=== PATIENT | female | born 1985 | race Caucasian/White ===

== ENCOUNTER 2017-04-06 09:02 | Outpatient (CLI) | payer OTHER ==
[2017-04-06 10:45] LABS: HCT - HEMATOCRIT 36.8 % (37.0-47.0); HGB - HEMOGLOBIN 12.6 g/dL (12.0-16.0); MEAN CORPUSCULAR HEMOGLOBIN 31.6 pg (27.0-31.0); MEAN CORPUSCULAR HGB CONC 34.3 g/dL (32.0-36.0); MEAN CORPUSCULAR VOLUME 92.1 fL (81.0-99.0); MEAN PLATELET VOLUME 7.3 fL (7.9-10.8); RED BLOOD COUNT 3.99 10^6/uL (4.20-5.40); RED CELL DISTRIBUTION WIDTH 13.5 % (12.0-15.0); WHITE BLOOD COUNT 10.9 x10^3/uL (4.8-10.8)
== END 2017-04-06 09:03 | disposition home or self-care (01) ==
LOC: LAB 09:02
PROVIDERS: ATTEND Nurse Practitioner Obstetrics & Gynecology
DX: Z36 Encounter for antenatal screening of mother (principal)
CPT/HCPCS: 36415; 82950; 86850; 87340

== ENCOUNTER 2017-05-22 07:42 | Outpatient (CLI) | payer OTHER | END 2017-05-22 07:43 | disposition home or self-care (01) | LOC: LAB.R 07:42 | PROVIDERS: ATTEND Nurse Practitioner Obstetrics & Gynecology | DX: Z11.3 Encounter for screening for infections with a predominantly sexual mode of transmission (principal) | CPT/HCPCS: 87081; 87491; 87591 ==

== ENCOUNTER 2017-06-29 14:27 | Inpatient (IN) | payer OTHER ==
[2017-06-29] MEDS ORDERED: SODIUM CHLORIDE FLUSH 0.9% 10 ML SYRINGE IVP PRN (14:50)
[2017-06-29] MEDS ORDERED: fentaNYL 100 MCG/2 ML VIAL IVP PRN (14:50)
[2017-06-29] MEDS ORDERED: ONDANSETRON 4 MG/2 ML VIAL IVP PRN (14:50)
--- NOTE | 2017-06-29 14:59 | HISTORY & PHYSICAL EXAMINATION ---
Admit History - Instructions Akhiok/Slash: -Left hand click circles element as positive or present. -Right hand click slashes element as negative or not present. - Visit Reason Visit Reason: Contractions (every 2 minutes x30 seconds), Other ( oligohydramnios @ 40w6d w/ NELSY 4.38cm this am) - : 1 Parity: 0 Premature: 0 Ectopic: 0 : 0 Care: positive: GRAEME-Florinda Risk/History: positive: None, Labor induction (pt desires AROM only to see if that is sufficient prior to Pitocin initiation), Other (history of PPH) Complications This : positive: None Smoking Status: Never smoker - Mother's Labs Mother's Blood Type: positive: O Mother's RH: positive: Positive GBS: positive: Group B Step Negative Rubella Status: positive: Immune - Other Maternal History Other Maternal History: hx PPH s/p rapid labor/delivery of 8#15oz infant s/p IOL for postdates/oligo Meds/Allgy - Home Medications Home Medications: Ambulatory Orders Medication Instructions Recorded Confirmed Pnv No.122/Iron/Folic Acid 1 PO DAILY 06/29/17 [ Multi Tablet] - Allergies Allergies/Adverse Reactions: Allergies Allergy/AdvReac Type Severity Reaction Status Date / Time No Known Drug Allergies Allergy Verified 06/29/17 15:01 Physical - Abdominal Exam Vital Signs: T: 98.4; HR 120bpm, BP 126/66, RR 18 : 4 Contraction Intensity: positive: Mild to moderate Uterine Resting Tone: positive: Soft - Monitoring Heart Rate Baseline: 145 Strip Review: positive: Category II (145bpm baseline, mod variability, + accel, non-repetitive occasional variable decel to maritza in 120s w/ spontaneous return to baseline <60 sec) - Presentation Presentation: positive: Vertex (EFW ~9#) - Vaginal Exam Membranes: positive: Membranes intact Dilation (in cm): 5-6 Effacement (%): 80 Station: positive: -2 Cervical Position: positive: Anterior - Speculum Exam Speculum Exam Performed: positive: No Plan for Labor - Plan For Labor : IOL secondary to oligo @ term; pt desires AROM only initially, Pitocin if no spontaneous progress, presently spontaneously sourav & favorable cervical status; GBS negative; desires unmedicated delivery; hemorrhage pack in room: Pitocin s/p delivery of anterior shoulder & buccal 400mcg misoprostol immediately s/p delivery; Pitocin if no spontaneous progress Plan for Labor: Erika is a 31 y/o @ 40w6d who presented today for her routine visit & underwent ENLSY evaluation secondary to postdates planning. She had hoped to enter spontaneous labor. Her NELSY this morning was 4.38cm w/ maximum vertical pocket of 1.68cm. I reviewed the indication for IOL & the risks/ benefits of IOL in the setting of favorable cervical status & oligohydramnios @ term. She desires AROM only initially w/ initiation of Pitocin infusion PRN no spontaneous progress. Her course was uncomplicated. Her obstetric hx is notable for hx of macrosomic delivery w/ immediate PPH. We discussed active management of the third stage of labor & we planned buccal misoprostol & IV Pitocin s/p delivery of anterior shoulder. She is hoping for minimal intervention during labor/delivery. She screened negative for GBS @ 36 weeks' gestation. She is sourav spontaneously. Dr. Eduard DO, apprised of plan of care & concurs.
[2017-06-29] MEDS ORDERED: LACTATED RINGERS 1,000 ML IV SCH ×2 (15:00→18:00)
[2017-06-29 15:22] LABS: BASOPHILS # (AUTO) 0.1 10^3/uL (0.0-0.1); BASOPHILS % (AUTO) 0.8 %; EOSINOPHILS # (AUTO) 0.1 10^3/uL (0.0-0.7); EOSINOPHILS % (AUTO) 0.4 %; HCT - HEMATOCRIT 39.7 % (37.0-47.0); HGB - HEMOGLOBIN 13.5 g/dL (12.0-16.0); LYMPHOCYTES # (AUTO) 1.5 10^3/uL (1.5-3.5); LYMPHOCYTES % (AUTO) 8.9 %; MEAN CORPUSCULAR HEMOGLOBIN 30.4 pg (27.0-31.0); MEAN CORPUSCULAR HGB CONC 33.9 g/dL (32.0-36.0); MEAN CORPUSCULAR VOLUME 89.5 fL (81.0-99.0); MEAN PLATELET VOLUME 7.5 fL (7.9-10.8); MONOCYTES # (AUTO) 0.8 10^3/uL (0.0-1.0); MONOCYTES % (AUTO) 4.7 %; NEUTROPHILS # (AUTO) 14.3 10^3/uL (1.5-6.6); NEUTROPHILS % (AUTO) 85.2 %; RED BLOOD COUNT 4.44 10^6/uL (4.20-5.40); RED CELL DISTRIBUTION WIDTH 14.6 % (12.0-15.0); UNCORRECTED WHITE BLOOD COUNT 16.8 x10^3/uL; WHITE BLOOD COUNT 16.8 x10^3/uL (4.8-10.8)
[2017-06-29 15:48] LABS: PLATELET ESTIMATE, MANUAL NORMAL (130-450,000) (NORMAL); PLATELET MORPHOLOGY NORMAL APPEARANCE (NORMAL); WBC MORPHOLOGY (MULTIPLE) NORMAL APPEARANCE (NORMAL)
[2017-06-29] MEDS ORDERED: miSOPROStol 200 MCG TABLET ONE (16:29)
[2017-06-29] MEDS ORDERED: LIDOCAINE 1% 50 ML MDV ONE (16:51)
[2017-06-29] MEDS: OXYTOCIN/LACTATED RINGERS 250 ML IV ONE ×2 (16:51→16:58)
--- NOTE | 2017-06-29 17:12 | PROVIDER PROGRESS NOTE ---
Labor Progress Note - Uterine Monitoring Uterine Monitoring Mode: positive: External toco Contraction Frequency (min/apart): 3 Contraction Intensity: positive: Moderate Uterine Resting Tone: positive: Soft - Monitoring Monitor Mode: positive: External ultrasound Heart Rate Baseline: 140 Heart Rate Variability: positive: Moderate (6-25 bmp) Accelerations: positive: Present, 15x15 Decelerations: positive: Early Strip Review: positive: Category I - Vaginal Exam Dilation (in cm): 7 Effacement (%): 100 Station: -1 Cervical Position: Anterior - Labor Progress Note Labor Progress Note/Additional Text: S: Erika reports increased intensity of uterine contractions, spontaneously, does not desire analgesia, anesthesia, would like AROM @ this time. , Rayshawn, present & supportive. O: AAOx3, NAD WA gravid female EFM: baseline 140bpm, + accel, +early decelerations, moderate variability TOCO: UCs q 3 minutes, palpably strong SVE; 7/100/-1, AROM for scant amt CAF A: 31 y/o @ 40w6d, spontaneous uterine contractions w/ advanced & progressive cervical dilation Augmentation for oligo per pt's request Hx of rapid labor w/ subsequent immediate PPH GBS negative CAF Adequate pain control w/o analgesia/anesthesia w/ desire for unmedicated delivery P: 1. Expectant
[2017-06-29] MEDS ORDERED: HYDROCORTISONE/PRAMOXINE 10 GM PR PRN (17:13)
[2017-06-29] MEDS ORDERED: OXYTOCIN/LACTATED RINGERS 250 ML IV ONE (17:13)
[2017-06-29] MEDS ORDERED: WITCH HAZEL/GLYCERIN 1 EACH MED..PAD TOP PRN (17:13)
[2017-06-29] MEDS ORDERED: HYDROCORTISONE 1% CREAM 28 GM TUBE PR PRN (17:13)
--- NOTE | 2017-06-29 17:33 | DELIVERY NOTE ---
Delivery Note - Labor Labor: positive: Augmented by ARM - Infant Delivery Method Delivery Method: positive: Spontaneous vaginal delivery - Presentation Presentation: positive: Vertex, OA - occiput anterior - Nuchal Cord Nuchal Cord: positive: None - Anesthetic Anesthetic Type: Anesthetic: positive: Lidocaine - 1% plain Volume: positive: Other (10mL) - Amniotic Fluid Description Amniotic Fluid Description: positive: Clear - Episiotomy Type Episiotomy Type: positive: None - Laceration Laceration: positive: 2nd degree - Suture Suture Type: positive: Vicryl Suture Size: positive: 2-0 - Delivery Outcome Delivery Outcome: positive: Livebirth - Granite Canon Granite Canon: positive: Placed in direct skin contact with mother, Stimulated, Warmed , [place] used sex: positive: Female - Cord Cord: positive: 3 vessels - Placenta Placenta: positive: Intact, Spontaneous - Estimated Blood Loss Estimated Blood Loss (in cc): 350 - Post Delivery Events Post Delivery Events: positive: No post delivery events - Delivery Comments (Free Text/Narrative) Delivery Comments (Free Text/Narrative): 31y/o @ 40w6d presented for routine appt w/ some uterine contractions & advanced cervical dilation. NELSY demonstrated oligohydramnios by total volume & maximum vertical pocket. Membranes were swept & uterine contractions subsequently became more intense. Pt presented to hospital /-1, AROM per pt request for scant CAF. FHTs were monitored t/o the first stage & were cat I-II for non-repetitive variable decelerations only. She progressed rapidly & spontaneously to complete dilatation & had spontaneous urge to push; total first stage duration of 2.5 hours. Erika delivered on her knees vaginally, direct OA w/ shoulders in transverse plane @ 1639, for a total 2nd stage duration of 6 minutes. Pushed w / spontaneous urge & direction to deliver shoulders & body w/ gentle traction. vigorous w/ spontaneous, lusty cry. Passed through maternal legs to maternal arms. Delayed cord clamping until cessation of pulsation, then cord clamped x2 by CNM, cut by FOB. 3VC noted, cord blood obtained. Active management of the 3rd stage w/ Pitocin in IV fluids & buccal misoprostol secondary to hx of PPH. Placenta delivered spontaneously, Nuñez & intact. Fundus firmed w/ massage @ U-1. Vagina & perineum inspected & 2nd degree perineal laceration noted, repaired s/ p infiltration w/ 10mL 1% lidocaine w/ 2-0 vicryl. Hemostatic. EBL 350mL. Infant latched, latch 08/01, & nursing. Mother & baby stable.
[2017-06-29] MEDS: IBUPROFEN 800 MG TABLET PO SCH ×2 (17:41→23:48)
[2017-06-29] MEDS: ACETAMINOPHEN 500 MG TABLET PO SCH ×2 (18:00→22:16)
[2017-06-29] MEDS ORDERED: METHYLERGONOVINE 0.2 MG/ML AMP IM ONE (18:39)
[2017-06-29] MEDS: DOCUSATE SODIUM 100 MG CAPSULE PO SCH ×2 (21:43→22:16)
[2017-06-29] MEDS ORDERED: SODIUM CHLORIDE FLUSH 0.9% 10 ML SYRINGE IVP SCH (22:00)
[2017-06-29] MEDS ORDERED: CHERRY SYRUP 10 ML UDC PO ONE (22:16)
[2017-06-29] MEDS: METHYLERGONOVINE 0.2 MG/ML AMP PO SCH (22:17)
[2017-06-30 05:58] LABS: HCT - HEMATOCRIT 38.1 % (37.0-47.0); HGB - HEMOGLOBIN 12.9 g/dL (12.0-16.0); MEAN CORPUSCULAR HEMOGLOBIN 30.7 pg (27.0-31.0); MEAN CORPUSCULAR HGB CONC 33.9 g/dL (32.0-36.0); MEAN CORPUSCULAR VOLUME 90.5 fL (81.0-99.0); MEAN PLATELET VOLUME 7.7 fL (7.9-10.8); RED BLOOD COUNT 4.21 10^6/uL (4.20-5.40); RED CELL DISTRIBUTION WIDTH 14.5 % (12.0-15.0); WHITE BLOOD COUNT 17.7 x10^3/uL (4.8-10.8)
[2017-06-30] MEDS: CHERRY SYRUP 10 ML UDC PO ONE ×2 (05:59→15:01)
[2017-06-30] MEDS: METHYLERGONOVINE 0.2 MG/ML AMP PO SCH ×3 (06:00→15:14)
[2017-06-30] MEDS: IBUPROFEN 800 MG TABLET PO SCH ×2 (06:00→12:33)
[2017-06-30] MEDS: ACETAMINOPHEN 500 MG TABLET PO SCH ×2 (06:01→14:17)
--- NOTE | 2017-06-30 08:35 | Discharge Plan ---
Discharge Plan Disposition: 01 Home, Self Care Condition: Good Prescriptions: Ibuprofen [Motrin] 800 mg PO Q6H #30 tablet Diet: Regular Activity Restrictions: Activity as Tolerated Shower Restrictions: No Driving Restrictions: No Weight Bearing: Full Weight Instruction Topics: Vaginal After Additional Instructions or Follow Up instructions: Follow up with Laurie Dia @ 2 weeks' , earlier as needed. No Smoking: If you smoke, Please STOP! Call for help.
--- NOTE | 2017-06-30 08:42 | DISCHARGE SUMMARY ---
"Discharge Summary Admit Date: 06/29/17 Discharge Date: 06/30/17 Discharging Provider: [place] Code Status: Attempt Resuscitation Condition at Discharge: Good Discharge Disposition: 01 Home, Self Care Discharge Facility Name: [facility] - DIAGNOSES Admission Diagnoses: Term , 40 weeks, 6 days Oligohydramnios Discharge Diagnoses with Status of Each Condition: 2nd degree perineal laceration w/ repair - HPI History of Present Illness: Erika is a 31 y/o G2 now P2 who was admitted in spontaneous, active labor @ term, s/p membrane sweeping & intent for IOL secondary to oligohydramnios identified in the office the morning of 06/29/2017. She was admitted @ 7cm dilatation & she underwent AROM per request for scant CAF. She progressed rapidly to complete dilatation & delivered vaginally over a 2nd degree perineal laceration, which was repaired, without complication. - CONSULTS | PROCEDURES Procedures: Repair of 2nd degree perineal laceration - HOSPITAL COURSE Hospital Course: Erika delivered vaginally over a 2nd degree perineal laceration, which was repaired, shortly after admission. She was well w/ excellent latch & reported a previously successful experience. She had had some increased bleeding in the immediate pp period w/ some intermittent atony, which responded well to IM methergine 0.2mg x1. She had received 2 oral doses of methergine 0.2mg & her bleeding was very minimal. She reported minimal abdominal or perineal discomfort. She was ambulating & voiding w/o difficulty. She had not yet had a bowel movement but was passing flatus. She was tolerating a regular diet. Her partner was present @ the bedside & was supportive. He would have 2 weeks of pp leave to assist her. She would not be returning to work. She denied hx of pp depression & reported excellent social support. She did not plan a in the near future & was considering IUD placement for pp contraception. She was able to fully articulate pp warning s/ sx, including pp depression s/sx, and pp aftercare instructions. She was ready to leave the hospital. She would continue po methergine 0.2mg TID x24 hours & then discontinue. A prescription was sent electronically [facility] in [place], and they would flower picker the medication on their way home. She declined analgesic Rx. - ALLERGIES Allergies/Adverse Reactions: Allergies Allergy/AdvReac Type Severity Reaction Status Date / Time No Known Drug Allergies Allergy Verified 06/29/17 15:01 - MEDICATIONS Home Medications: Ambulatory Orders Medication Instructions Recorded Confirmed Pnv No.122/Iron/Folic Acid 1 PO DAILY 06/29/17 [ Multi Tablet] Ibuprofen [Motrin] 800 mg PO Q6H #30 tablet 06/30/17 - PHYSICAL EXAM AT DISCHARGE General Appearance: positive: No acute distress, Alert Eyes Bilateral: positive: Normal inspection, PERRL, EOMI ENT: positive: ENT inspection nml Respiratory: positive: Chest non-tender, Breath sounds nml Cardiovascular: positive: Regular rate & rhythm, No murmur, No gallop Peripheral Pulses: positive: 2+ Abdomen: positive: Non-tender, No distention (FF U-1) Skin: positive: Color nml, Warm, Dry Extremities: positive: Non-tender, Full ROM, Nml appearance, No pedal edema. negative: Calf tenderness, Jayden's sign/cords Neurologic/Psychiatric: positive: Oriented x3, Mood/affect nml - LABS Result Diagrams: 06/30/17 05:20 - FOLLOW UP Follow Up: x2 weeks with KENJI Lopez, @ [facility], earlier PRN - TIME SPENT Time Spent in Discharge (Minutes): 30"
[2017-06-30] MEDS: DOCUSATE SODIUM 100 MG CAPSULE PO SCH (12:33)
[2017-06-30 18:54] VITALS: BP 106/62
--- NOTE | 2017-06-30 18:56 | Labor Flowsheet ---
Labor Flowsheet Datetime Report Generated by CPN: 06/30/2017 18:56 Datetime: 06/30/2017 12:16 VITAL SIGNS NBP Sys/Marzena/Mean (mmHg): 108 : 69 : 77 Pulse: 79 LaborFlag: Labor Datetime: 06/30/2017 12:15 SpO2 (%): 98 Datetime: 06/29/2017 16:36 Stage of : Labor UTERINE ACTIVITY Monitor Mode: External Frequency (min): pushing Quality: Strong Contraction Comments: mom draped over top of bed on knees ASSESSMENT A Monitor Mode: External US FHR Baseline Rate : 140 Variability: Moderate 6-25 bpm Comments: head compression decels with pushing, Oxygen Method: Room Air Datetime: 06/29/2017 16:28 Monitor Interventions for UA: [place] Adjusted Duration (sec): 60-80 Resting Tone (Palpate): Relaxed Patient Care Comments: birthing ball Datetime: 06/29/2017 15:57 VAGINAL EXAM Dilatation (cm): 6.0 Effacement (%): 100 Station: -1 Exam by: Laurie Arora CNM Membrane Status: Ruptured Membranes Rupture Method: Artificial Amniotic Fluid Color: Clear Amniotic Fluid Amount: Small Amniotic Fluid Odor: Normal Cervix, Consistency: Soft Cervix, Position: Midposition Datetime: 06/29/2017 15:56 Accelerations: 15X15 Decelerations: None Category: Category I I/O Interventions: Up to BR Datetime: 06/29/2017 15:53 Provider Reviewed Strip: Yes Strip Reviewed by: Sumit Shiloh, RNC COMMUNICATION Communication: Provider at Bedside Provider Notified (Name): Laurie Arora CNM Datetime: 06/29/2017 15:37 PATIENT CARE IV/Blood Work: IV Started; IV Saline Locked Datetime: 06/29/2017 14:47 Respirations: 18 Temperature (F): 95.4 Temperature (C): 35.2 Temperature (C): 35.2
[2017-06-30] MEDS ORDERED: CHERRY SYRUP 10 ML UDC PO SCH (22:00)
== END 2017-06-30 18:30 | disposition home or self-care (01) | DRG 775 ==
LOC: FBP 14:27
PROVIDERS: ADMIT Registered Nurse; ATTEND Registered Nurse
PROC: 10907ZC Drainage of Amniotic Fluid, Therapeutic from Products of Conception, Via Natural or Artificial Opening (ICD-10-PCS; principal; 2017-06-29)
PROC: 10E0XZZ Delivery of Products of Conception, External Approach (ICD-10-PCS; 2017-06-29)
PROC: 0KQM0ZZ Repair Perineum Muscle, Open Approach (ICD-10-PCS; 2017-06-29)
DX: O41.03X0 Oligohydramnios, third trimester, not applicable or unspecified (principal); O70.1 Second degree perineal laceration during delivery; Z3A.40 40 weeks gestation of pregnancy; Z37.0 Single live birth
CPT/HCPCS: 36415; 85025

== ENCOUNTER 2019-07-24 10:24 | Outpatient (CLI) | payer OTHER ==
--- NOTE | 2019-07-24 14:23 | Ultrasound Report ---
Reason: TEST POSITIVE Procedure Date: 07/24/2019 Accession Number: [id number] / [id number] Procedure: US - OB First Trimester CPT Code: FULL RESULT: EXAM: FIRST TRIMESTER OBSTETRIC ULTRASOUND (Less than 11 weeks) EXAM DATE: 07/24/2019 11:10 AM. CLINICAL HISTORY: test positive. LMP: Unknown. COMPARISONS: None. TECHNIQUE: Transabdominal ultrasound examination with static image documentation. CLINICAL DATES: EGA 7 weeks 0 days with DANN 03/11/2020 based on LMP. ASSESSMENT: Gestational Sac: Single intrauterine. Mean gestational sac diameter: 51.6 mm = 11 weeks 0 days. Embryo: CRL (crown-rump length) 36.8 mm = 10 weeks 4 days. Cardiac activity: 158 beats per minute. Yolk sac: Not visualized. Amniotic fluid: Not accurately assessed at this gestational age. Early placenta: Anterior. Other: No perigestational fluid collection demonstrated. MATERNAL STRUCTURES: Uterus: Anteverted/Retroverted. Unremarkable. Cervix: Closed. Right Ovary/Adnexa: The ovary measures 2.8 x 1.9 x 1.9 cm, volume 5.3 cc. There is a 1.4 cm maximal diameter corpus luteal cyst. Left Ovary/Adnexa: The ovary measures 2.7 x 2.6 x 1.8 cm, volume 6.6 cc. Unremarkable. Free Fluid: None. Other: None. IMPRESSION: 1. Single viable intrauterine at EGA 10 weeks 4 days with DANN 02/15/2020 based on crown-rump length, which is greater than clinical dates. 2. Assigned dating is DANN 10 weeks 4 days based on current ultrasound. RADIA
== END 2019-07-24 10:25 | disposition home or self-care (01) ==
LOC: DI 10:24
PROVIDERS: ATTEND Obstetrics & Gynecology
DX: Z32.01 Encounter for pregnancy test, result positive (principal)
CPT/HCPCS: 76801

== ENCOUNTER 2019-08-02 08:00 | Outpatient (CLI) | payer OTHER ==
[2019-08-02 18:47] LABS: MUDS CUTOFF CONCENTRATIONS CUTOFF CONC BELOW:
[2019-08-02 19:21] LABS: AMPHETAMINE SCREEN,URINE NEGATIVE (NEGATIVE); BENZODIAZEPINES SCREEN, URINE NEGATIVE (NEGATIVE); COCAINE SCREEN URINE NEGATIVE (NEGATIVE); METHADONE SCREEN, URINE NEGATIVE (NEGATIVE); METHAMPHETAMINES SCREEN, URINE NEGATIVE (NEGATIVE); OPIATE SCREEN, URINE NEGATIVE (NEGATIVE); OXYCODONE SCREEN, URINE NEGATIVE (NEGATIVE); PROPOXYPHENE SCREEN, URINE NEGATIVE (NEGATIVE); TRICYCLIC ANTIDEPRESSANT,URINE NEGATIVE (NEGATIVE)
== END 2019-08-02 08:01 | disposition home or self-care (01) ==
LOC: LAB.R 08:00
PROVIDERS: ATTEND Nurse Practitioner Obstetrics & Gynecology
DX: Z36.89 Encounter for other specified antenatal screening (principal); R82.79 Other abnormal findings on microbiological examination of urine
CPT/HCPCS: 80306; 87086

== ENCOUNTER 2019-08-30 10:09 | Outpatient (CLI) | payer OTHER ==
[2019-08-30 11:07] LABS: BASOPHILS % (AUTO) 0.3 %; EOSINOPHILS # (AUTO) 0.1 10^3/uL (0.0-0.7); EOSINOPHILS % (AUTO) 1.1 %; HGB - HEMOGLOBIN 12.6 g/dL (12.0-16.0); LYMPHOCYTES # (AUTO) 1.6 10^3/uL (1.5-3.5); LYMPHOCYTES % (AUTO) 16.1 %; MEAN CORPUSCULAR HEMOGLOBIN 30.8 pg (27.0-31.0); MEAN CORPUSCULAR HGB CONC 33.4 g/dL (32.0-36.0); MEAN CORPUSCULAR VOLUME 92.2 fL (81.0-99.0); MEAN PLATELET VOLUME 9.1 fL (7.9-10.8); MONOCYTES # (AUTO) 0.6 10^3/uL (0.0-1.0); MONOCYTES % (AUTO) 5.5 %; NEUTROPHILS # (AUTO) 7.6 10^3/uL (1.5-6.6); NEUTROPHILS % (AUTO) 76.3 %; PLT - PLATELET COUNT 323 10^3/uL (130-450); RED BLOOD COUNT 4.09 10^6/uL (4.20-5.40); RED CELL DISTRIBUTION WIDTH 13.1 % (12.0-15.0)
[2019-08-31 12:12] LABS: HEPATITIS B SURFACE ANTIGEN NON-REACTIVE (NON-REACTIVE); HEPATITIS C ANTIBODY NON-REACTIVE (NON-REACTIVE)
[2019-08-31 12:52] LABS: HIV AG/AB 4TH GEN NON-REACTIVE (NON-REACTIVE)
== END 2019-08-30 10:10 | disposition home or self-care (01) ==
LOC: LAB 10:09
PROVIDERS: ATTEND Obstetrics & Gynecology
DX: Z34.90 Encounter for supervision of normal pregnancy, unspecified, unspecified trimester (principal); Z36.89 Encounter for other specified antenatal screening
CPT/HCPCS: 36415; 81511; 81599; 85025; 86592; 86762; 86803; 86850; 86900; 86901; 87340; 87389

== ENCOUNTER 2019-09-16 10:27 | Outpatient (CLI) | payer OTHER ==
--- NOTE | 2019-09-16 15:07 | Ultrasound Report ---
Reason: ENCOUNTER FOR OTHER SPECIFIED SCREENING Procedure Date: 09/16/2019 Accession Number: [id number] / [id number] Procedure: US - OB Detailed Eval CPT Code: Final Report FULL RESULT: EXAM: COMPLETE OBSTETRICAL ULTRASOUND EXAM DATE: 09/16/2019 10:46 AM. CLINICAL HISTORY: anatomic survey. COMPARISON: None. TECHNIQUE: Real-time sonographic evaluation of the fetus performed by the drawing operator. Multiple direct sales representative static images were saved for review. DATING: Established EGA 15 wks 0 days with DANN 03/11/20 based on LMP. EGA 18 wks 2 days with DANN 02/15/20 based on first ultrasound. EGA 18 wks 5 days with DANN 02/12/20 based on the current ultrasound. GENERAL EVALUATION [place] . Cardiac activity: 131 bpm. movement: Visualized. Presentation: Cephalic. Placenta: Anterior position. No evidence for previa. Umbilical cord: 2 vessel cord. Central placental cord origin. Amniotic fluid: Subjectively normal. MVP 3.8 cm. BIOMETRY Bi-Parietal Diameter (BPD): 4.20 cm, 18 wks 5 days Head Circumference (HC): 15.69 cm, 18 wks 4 days Abdominal Circumference (AC): 13.50 cm, 19 wks 0 days Femur Length (FL): 2.72 cm, 18 wks 2 days Estimated Weight: 250 g, 67.9 percentile. ANATOMY The intracranial structures, profile, face/nose/lips, spine, 4 chamber heart and outflow tracts, stomach, abdominal wall and cord insertion, diaphragm, kidneys, bladder, and extremities were visualized and demonstrate no abnormality. MATERNAL STRUCTURES Uterus: Unremarkable. Cervix: Long and closed. Transabdominal length 5.8 cm. Right ovary/adnexa: Unremarkable. Left ovary/adnexa: Unremarkable. Free fluid: None. IMPRESSION: 1. [place] live intrauterine with gestational age 18 weeks / 5 days based on today's biometry. This is within 3 days of the getational age based on initial ultrasound. 2. Estimated weight is within expected limits for assigned dating. 3. Suspect two-vessel cord. Recommend follow-uptargeted ultrasound in 4 weeks for confirmation. The anatomic survey is otherwise normal. RADIA
== END 2019-09-16 10:28 | disposition home or self-care (01) ==
LOC: DI 10:27
PROVIDERS: ATTEND Obstetrics & Gynecology
DX: Z36.89 Encounter for other specified antenatal screening (principal); O28.4 Abnormal radiological finding on antenatal screening of mother
CPT/HCPCS: 76811

== ENCOUNTER 2019-11-11 14:11 | Outpatient (CLI) | payer OTHER ==
--- NOTE | 2019-11-12 12:52 | Ultrasound Report ---
Reason: SINGLE UMBILICAL ARTERY, SUPERVISION OF Procedure Date: 11/11/2019 Accession Number: [id number] / [id number] Procedure: US - OB F/U or Repeat CPT Code: Final Report FULL RESULT: EXAM: FOLLOW-UP OBSTETRICAL ULTRASOUND EXAM DATE: 11/11/2019 02:58 PM. CLINICAL HISTORY: SINGLE UMBILICAL ARTERY, SUPERVISION OF . COMPARISON: OB DETAILED EVAL 09/16/2019 10:46 AM. TECHNIQUE: Real-time sonographic evaluation of the fetus performed by the nitrate operator. Multiple customer care representative static images were saved for review. DATING: EGA 26 weeks 2 days with DANN 02/15/2020 based on 07/24/2019 ultrasound. EGA 26 weeks 4 days with DANN 02/13/2020 based on the current ultrasound. GENERAL EVALUATION [place] . Cardiac activity: 139 bpm. movement: Visualized. Presentation: Cephalic. Placenta: Anterior position. Amniotic fluid: Normal. NELSY 14.9 cm. MVP 5.5 cm. BIOMETRY Bi-Parietal Diameter (BPD): 6.7 cm, 27 weeks 1 day Head Circumference (HC): 24.47 cm, 26 weeks 4 days Abdominal Circumference (AC): 22.23 cm, 26 weeks 5 days Femur Length (FL): 4.7 6 cm, 25 weeks 6 days Estimated Weight: 933 g, 43.6 percentile for weeks/days. IMPRESSION: 1. [place] live intrauterine with gestational age 26 weeks 2 days based on 07/24/2019 ultrasound dating . 2. Estimated weight is within expected limits for assigned dating. RADIA
== END 2019-11-11 14:12 | disposition home or self-care (01) ==
LOC: DI 14:11
PROVIDERS: ATTEND Obstetrics & Gynecology
DX: Z34.92 Encounter for supervision of normal pregnancy, unspecified, second trimester (principal); Q27.0 Congenital absence and hypoplasia of umbilical artery
CPT/HCPCS: 76816

== ENCOUNTER 2019-11-18 09:20 | Outpatient (CLI) | payer OTHER ==
[2019-11-18 10:41] LABS: HGB - HEMOGLOBIN 12.8 g/dL (12.0-16.0); MEAN CORPUSCULAR HEMOGLOBIN 31.2 pg (27.0-31.0); MEAN CORPUSCULAR HGB CONC 32.8 g/dL (32.0-36.0); MEAN CORPUSCULAR VOLUME 95.1 fL (81.0-99.0); MEAN PLATELET VOLUME 8.8 fL (7.9-10.8); RED BLOOD COUNT 4.1 10^6/uL (4.20-5.40); RED CELL DISTRIBUTION WIDTH 13.4 % (12.0-15.0)
== END 2019-11-18 09:21 | disposition home or self-care (01) ==
LOC: LAB 09:20
PROVIDERS: ATTEND Obstetrics & Gynecology
DX: Z34.90 Encounter for supervision of normal pregnancy, unspecified, unspecified trimester (principal)
CPT/HCPCS: 36415; 82950; 85027

== ENCOUNTER 2020-01-01 09:19 | Outpatient (CLI) | payer OTHER ==
--- NOTE | 2020-01-01 11:59 | Ultrasound Report ---
Reason: SINGLE UMBILICAL ARTERY, SUPER OF Procedure Date: 01/01/2020 Accession Number: [id number] / [id number] Procedure: US - OB F/U or Repeat CPT Code: Final Report FULL RESULT: EXAM: FOLLOW-UP OBSTETRICAL ULTRASOUND EXAM DATE: 01/01/2020 10:28 AM. CLINICAL HISTORY: Single umbilical artery, supervision of . COMPARISON: OB F/U OR REPEAT 11/11/2019 2:30 PM OB DETAILED EVAL 09/16/2019 10:46 AM. TECHNIQUE: Real-time sonographic evaluation of the fetus performed by the yarn man. Multiple accounts payable representative static images were saved for review. DATING: Established EGA 33 weeks 4 days with DANN 02/15/2020 based on first ultrasound as working due date. EGA 34 weeks 2 days with DANN 02/10/2020 based on the current ultrasound. GENERAL EVALUATION [place] . Cardiac activity: 137 bpm. movement: Visualized. Presentation: Cephalic. Placenta: Anterior position. Amniotic fluid: Normal. NELSY 20 cm. MVP 7.1 cm. BIOMETRY Bi-Parietal Diameter (BPD): 8.7 cm, 34 weeks 6 days. Head Circumference (HC): 31 cm, 34 weeks 4 days. Abdominal Circumference (AC): 30.8 cm, 34 weeks 5 days. Femur Length (FL): 6.3 cm, 32 weeks 5 days. Estimated Weight: 2369 g, 62nd percentile for 33 weeks 4 days. MATERNAL STRUCTURES Cervix appears long and closed transabdominally, 3.7 cm. IMPRESSION: 1. [place] live intrauterine with gestational age 33 weeks 4 days based on prior ultrasound as working due date. 2. Estimated weight is within expected limits for assigned dating. 3. Normal interval growth compared to 11/11/2019. RADIA
== END 2020-01-01 09:20 | disposition home or self-care (01) ==
LOC: DI 09:19
PROVIDERS: ATTEND Obstetrics & Gynecology
DX: Z34.93 Encounter for supervision of normal pregnancy, unspecified, third trimester (principal); Q27.0 Congenital absence and hypoplasia of umbilical artery
CPT/HCPCS: 76816

== ENCOUNTER 2020-01-01 10:23 | Outpatient (CLI) | payer OTHER ==
[2020-01-01 10:35] VITALS: BP 121/69
--- NOTE | 2020-01-07 15:34 | PROCEDURE REPORT ---
- HPI Diagnosis/Indication for NST: Other (2VC and maternal Charcot Юлия Tooth) Current EDU 02/15/20 Gestation 33 Weeks and 4 Days 3 Para 1 Vital Signs Temperature 97.9 F 01/01/20 10:34 Heart Rate 94 01/01/20 10:34 Respiratory Rate 18 01/01/20 10:34 Blood Pressure 121/69 01/01/20 10:34 O2 Saturation 98 01/01/20 10:34 Temperature 97.9 F 01/01/20 10:34 Heart Rate 94 01/01/20 10:34 Respiratory Rate 18 01/01/20 10:34 Blood Pressure 121/69 01/01/20 10:34 O2 Saturation 98 01/01/20 10:34 - NST Procedure NST Procedure Start Date 01/01/20 Start Time 10:30 Stop Time 11:04 Vibroacoustic Stimulation Used No Patient States Movement Yes EFM 130 mod quinn 15x15 accels no decels TOCO: irritable - Results and Plan Findings/Impression: 34 yo at 33+1 wga with SVC and maternal Charcot Юлия Tooth Cat I tracing Cont with twice weekly NST and weekly NELSY Q4 week us for growth
== END 2020-01-01 11:11 | disposition home or self-care (01) ==
LOC: WFO 10:23 → FBP 10:26 → WFO 11:11
PROVIDERS: ATTEND Obstetrics & Gynecology
DX: O99.353 Diseases of the nervous system complicating pregnancy, third trimester (principal); G60.0 Hereditary motor and sensory neuropathy; O36.8990 Maternal care for other specified fetal problems, unspecified trimester, not applicable or unspecified; Z3A.33 33 weeks gestation of pregnancy
CPT/HCPCS: 59025; 76816

== ENCOUNTER 2020-01-04 09:56 | Outpatient (CLI) | payer OTHER ==
[2020-01-04 10:14] VITALS: BP 129/78
--- NOTE | 2020-01-04 15:30 | PROCEDURE REPORT ---
- HPI Diagnosis/Indication for NST: Other (two vessel cord) Current EDU 02/15/20 Gestation 34 Weeks and 0 Days 3 Para 2 Vital Signs Temperature 98.8 F 01/04/20 10:10 Heart Rate 109 H 01/04/20 10:10 Respiratory Rate 16 01/04/20 10:10 Blood Pressure 129/78 01/04/20 10:10 Temperature 98.8 F 01/04/20 10:10 Heart Rate 109 H 01/04/20 10:10 Respiratory Rate 16 01/04/20 10:10 Blood Pressure 129/78 01/04/20 10:10 O2 Saturation - NST Procedure NST Procedure Start Date 01/04/20 Start Time 10:05 Stop Time 10:42 Vibroacoustic Stimulation Used No Patient States Movement Yes - Results and Plan Findings/Impression: Reactive. No complaints. Plan: DC home. F/u as scheduled
== END 2020-01-04 10:50 | disposition home or self-care (01) ==
LOC: WFO 09:56 → FBP 10:00 → WFO 10:50
PROVIDERS: ATTEND Obstetrics & Gynecology
DX: O36.8931 Maternal care for other specified fetal problems, third trimester, fetus 1 (principal); Z3A.34 34 weeks gestation of pregnancy
CPT/HCPCS: 59025

== ENCOUNTER 2020-01-08 17:19 | Outpatient (CLI) | payer OTHER ==
--- NOTE | 2020-01-09 05:10 | Ultrasound Report ---
Reason: WEEKLY NELSY WITH NST Procedure Date: 01/08/2020 Accession Number: [id number] / [id number] Procedure: US - OB Limited CPT Code: Final Report FULL RESULT: EXAM: LIMITED OBSTETRICAL ULTRASOUND EXAM DATE: 01/08/2020 05:55 PM. CLINICAL HISTORY: WEEKLY NELSY WITH NST. 2 vessel umbilical cord. COMPARISON: OB F/U OR REPEAT 01/01/2020 9:42 AM. TECHNIQUE: Real-time sonographic evaluation of the fetus performed by the repairer auto clocks. Multiple hvac sales representative static images were saved for review. DATING: Established EGA 34 weeks 4 days with DANN 02/15/2020. GENERAL EVALUATION [place] . Cardiac activity: 143 bpm. movement: Visualized. Presentation: Cephalic. Placenta: Anterior position. Amniotic fluid: NELSY 22.6 cm. MVP 7.4 cm. ANATOMY Not assessed on limited exam. MATERNAL STRUCTURES Not assessed on limited exam. IMPRESSION: 1. Single live intrauterine with gestational age 34 weeks 4 days based on established DANN. 2. Amniotic fluid index 22.6 cm with MVP measuring 7.4 cm. RADIA
== END 2020-01-08 17:20 | disposition home or self-care (01) ==
LOC: DI 17:19
PROVIDERS: ATTEND Obstetrics & Gynecology
DX: O36.8931 Maternal care for other specified fetal problems, third trimester, fetus 1 (principal); Z3A.34 34 weeks gestation of pregnancy
CPT/HCPCS: 76815

== ENCOUNTER 2020-01-08 18:14 | Outpatient (CLI) | payer OTHER ==
[2020-01-08 18:28] VITALS: BP 119/68
--- NOTE | 2020-01-11 11:27 | PROCEDURE REPORT ---
- HPI Diagnosis/Indication for NST: Other (Two vessel cord) Current EDU 02/15/20 Gestation 34 Weeks and 4 Days 3 Para 2 Vital Signs Temperature 98.1 F 01/08/20 18:25 Heart Rate 101 H 01/08/20 18:25 Respiratory Rate 16 01/08/20 18:25 Blood Pressure 119/68 01/08/20 18:25 O2 Saturation 100 01/08/20 18:25 Temperature 98.1 F 01/08/20 18:25 Heart Rate 101 H 01/08/20 18:25 Respiratory Rate 16 01/08/20 18:25 Blood Pressure 119/68 01/08/20 18:25 O2 Saturation 100 01/08/20 18:25 - NST Procedure NST Procedure Start Date 01/08/20 Start Time 18:24 Stop Time 19:00 Vibroacoustic Stimulation Used No Patient States Movement Yes - Results and Plan Findings/Impression: Category 1 tracing. F/U as scheduled
== END 2020-01-08 19:08 | disposition home or self-care (01) ==
LOC: WFO 18:14
PROVIDERS: ATTEND Obstetrics & Gynecology
DX: O36.8931 Maternal care for other specified fetal problems, third trimester, fetus 1 (principal); O35.8XX0 Maternal care for other (suspected) fetal abnormality and damage, not applicable or unspecified; Z3A.34 34 weeks gestation of pregnancy
CPT/HCPCS: 59025; 76815

== ENCOUNTER 2020-01-11 09:59 | Outpatient (CLI) | payer OTHER ==
[2020-01-11 10:11] VITALS: BP 113/65
--- NOTE | 2020-01-12 18:38 | PROCEDURE REPORT ---
- HPI Diagnosis/Indication for NST: Other (2 vessel cord) Current EDU 02/15/20 Gestation 35 Weeks and 0 Days 3 Para 1 Vital Signs Temperature 98.1 F 01/11/20 10:10 Heart Rate 107 H 01/11/20 10:10 Respiratory Rate 18 01/11/20 10:10 Blood Pressure 113/65 01/11/20 10:10 O2 Saturation 97 01/11/20 10:10 Temperature 98.1 F 01/11/20 10:10 Heart Rate 107 H 01/11/20 10:10 Respiratory Rate 18 01/11/20 10:10 Blood Pressure 113/65 01/11/20 10:10 O2 Saturation 97 01/11/20 10:10 - NST Procedure NST Procedure Start Date 01/11/20 Start Time 10:05 Stop Time 10:45 Vibroacoustic Stimulation Used No Patient States Movement Yes - Results and Plan Findings/Impression: Reactive NST, category 1. Follow up as scheduled
== END 2020-01-11 10:50 | disposition home or self-care (01) ==
LOC: WFO 09:59 → FBP 10:01 → WFO 10:50
PROVIDERS: ATTEND Obstetrics & Gynecology
DX: O36.93X0 Maternal care for fetal problem, unspecified, third trimester, not applicable or unspecified (principal); Z3A.35 35 weeks gestation of pregnancy
CPT/HCPCS: 59025

== ENCOUNTER 2020-01-14 11:24 | Outpatient (CLI) | payer OTHER ==
--- NOTE | 2020-01-15 11:12 | Ultrasound Report ---
Reason: SINGLE UMBILICAL ARTERY, SUPER OF Procedure Date: 01/14/2020 Accession Number: [id number] / [id number] Procedure: US - OB F/U or Repeat CPT Code: Final Report FULL RESULT: EXAM: LIMITED OBSTETRICAL ULTRASOUND EXAM DATE: 01/14/2020 11:54 AM. CLINICAL HISTORY: SINGLE UMBILICAL ARTERY, supervision OF . COMPARISON: OB BIOPHYSICAL PROFILE 01/14/2020 2:02 PM OB F/U OR REPEAT 01/01/2020 9:42 AM. TECHNIQUE: Real-time sonographic evaluation of the fetus performed by the radar repairer. Multiple insurance claims representative static images were saved for review. DATING: Established EGA 35 weeks 3 days with DANN 02/15/2020. GENERAL EVALUATION [place] . Cardiac activity: 145 bpm. movement: Present. Presentation: Cephalic. Placenta: Anterior position. Amniotic fluid: Normal. NELSY 19.5 cm. MVP 6.6 cm. IMPRESSION: 1. [place] intrauterine with gestational age 35 weeks 3 days based on established DANN. 2. NELSY 19.5 cm. MVP 6.6 cm. RADIA
== END 2020-01-14 11:25 | disposition home or self-care (01) ==
LOC: DI 11:24
PROVIDERS: ATTEND Obstetrics & Gynecology
DX: O36.8931 Maternal care for other specified fetal problems, third trimester, fetus 1 (principal); Z3A.35 35 weeks gestation of pregnancy
CPT/HCPCS: 76816

== ENCOUNTER 2020-01-14 11:48 | Outpatient (CLI) | payer OTHER ==
[2020-01-14 12:47] VITALS: BP 118/64
--- NOTE | 2020-01-14 15:35 | Ultrasound Report ---
Reason: non-reactive NST, decreased movement Procedure Date: 01/14/2020 Accession Number: [id number] / [id number] Procedure: US - OB Biophysical Profile CPT Code: Final Report FULL RESULT: EXAM: BIOPHYSICAL PROFILE EXAM DATE: 01/14/2020 02:02 PM. CLINICAL HISTORY: Non-reactive NST, decreased movement. Two-vessel cord COMPARISON: OB F/U OR REPEAT 01/14/2020 11:32 AM OB LIMITED 01/08/2020 5:55 PM. TECHNIQUE: Real-time sonographic evaluation of the fetus performed by the welding engineer. Multiple bilingual sales representative static images were saved for review. DATING: Established EGA 35 weeks 3 days with DANN 02/15/2020. GENERAL EVALUATION [place] . Cardiac activity: 140 bpm. movement: Present. Presentation: Variable Placenta: Anterior position. No evidence for previa or abruption. Amniotic fluid: Normal. NELSY 18 cm. MVP 5.7 cm. BIOPHYSICAL PROFILE Breathing = 0 Movement = 2 Tone = 2 Amniotic Fluid = 2 Total 03/30 IMPRESSION: 1. Bagley intrauterine with gestational age 35 weeks 3 days based on established DANN. 2. Biophysical profile score 6 of 8. 3. NELSY 18 cm. MVP 5.7 cm. RADIA
[2020-01-14 21:36] LABS: TRICHOMONAS VAGINALIS DNA NEGATIVE (NEGATIVE)
--- NOTE | 2020-01-15 11:23 | PROCEDURE REPORT ---
- HPI Diagnosis/Indication for NST: Other (two vessel cord) Current EDU 02/15/20 Gestation 35 Weeks and 3 Days 3 Para 2 Vital Signs Heart Rate 90 01/14/20 12:08 Respiratory Rate 16 01/14/20 12:08 Blood Pressure 118/64 01/14/20 12:08 Temperature Heart Rate 90 01/14/20 12:08 Respiratory Rate 16 01/14/20 12:08 Blood Pressure 118/64 01/14/20 12:08 O2 Saturation - NST Procedure NST Procedure Start Date 01/14/20 Start Time 11:58 Stop Time 12:58 Vibroacoustic Stimulation Used Yes Patient States Movement Yes: decreased and more subtle - Results and Plan Findings/Impression: Slow to be reactive. BPP 6/ missing breathing movements Plan: repeat NST tomorrow
== END 2020-01-14 15:45 | disposition home or self-care (01) ==
LOC: WFO 11:48 → FBP 11:52 → WFO 15:45
PROVIDERS: ATTEND Obstetrics & Gynecology
DX: O36.8931 Maternal care for other specified fetal problems, third trimester, fetus 1 (principal); O36.8130 Decreased fetal movements, third trimester, not applicable or unspecified; Z3A.35 35 weeks gestation of pregnancy
CPT/HCPCS: 59025; 76816; 76819; 87081; 87491; 87591; 87661; 87797

== ENCOUNTER 2020-01-15 15:16 | Outpatient (CLI) | payer OTHER ==
[2020-01-15 15:23] VITALS: BP 128/67
--- NOTE | 2020-01-24 16:27 | PROCEDURE REPORT ---
- HPI Diagnosis/Indication for NST: Other (tow vessel cord) Current EDU 02/15/20 Gestation 35 Weeks and 4 Days 3 Para 2 Vital Signs Temperature 37.0 C 01/15/20 15:19 Heart Rate 97 01/15/20 15:19 Respiratory Rate 16 01/15/20 15:19 Blood Pressure 128/67 01/15/20 15:19 Temperature 37.0 C 01/15/20 15:19 Heart Rate 97 01/15/20 15:19 Respiratory Rate 16 01/15/20 15:19 Blood Pressure 128/67 01/15/20 15:19 O2 Saturation - NST Procedure NST Procedure Start Date 01/15/20 Start Time 15:10 Stop Time 15:52 Vibroacoustic Stimulation Used No Patient States Movement Yes - Results and Plan Findings/Impression: reactive NST Plan: continue twice weekly NST
== END 2020-01-15 15:59 | disposition home or self-care (01) ==
LOC: WFO 15:16 → FBP 15:17 → WFO 15:59
PROVIDERS: ATTEND Obstetrics & Gynecology
DX: O36.8930 Maternal care for other specified fetal problems, third trimester, not applicable or unspecified (principal); Z3A.35 35 weeks gestation of pregnancy
CPT/HCPCS: 59025

== ENCOUNTER 2020-01-18 10:05 | Outpatient (CLI) | payer OTHER ==
[2020-01-18 10:19] VITALS: BP 120/68
--- NOTE | 2020-01-18 11:32 | PROCEDURE REPORT ---
- HPI Diagnosis/Indication for NST: Other (2VC) Current EDU 02/15/20 Gestation 36 Weeks and 0 Days 3 Para 2 Vital Signs Temperature 97.5 F L 01/18/20 10:18 Heart Rate 110 H 01/18/20 10:18 Respiratory Rate 16 01/18/20 10:18 Blood Pressure 120/68 01/18/20 10:18 O2 Saturation 100 01/18/20 10:18 Temperature 97.5 F L 01/18/20 10:18 Heart Rate 110 H 01/18/20 10:18 Respiratory Rate 16 01/18/20 10:18 Blood Pressure 120/68 01/18/20 10:18 O2 Saturation 100 01/18/20 10:18 - NST Procedure NST Procedure Start Date 01/18/20 Start Time 10:10 Stop Time 10:45 Vibroacoustic Stimulation Used No Patient States Movement Yes EFM 125 mod quinn 15x15 accels no decels TOCO; quiet - Results and Plan Findings/Impression: 34 yo at 36+0 wga with affected by 2VC Cat I tracing Cont with twice weekly NST and weekly NELSY
== END 2020-01-18 10:50 | disposition home or self-care (01) ==
LOC: WFO 10:05 → FBP 10:06 → WFO 10:50
PROVIDERS: ATTEND Obstetrics & Gynecology
DX: O36.93X0 Maternal care for fetal problem, unspecified, third trimester, not applicable or unspecified (principal); Z3A.36 36 weeks gestation of pregnancy
CPT/HCPCS: 59025

== ENCOUNTER 2020-01-22 15:12 | Outpatient (CLI) | payer OTHER ==
--- NOTE | 2020-01-23 01:56 | Ultrasound Report ---
Reason: NELSY - 2 VESSEL CORD Procedure Date: 01/22/2020 Accession Number: [id number] / [id number] Procedure: US - OB Limited CPT Code: Final Report FULL RESULT: EXAM: LIMITED OBSTETRICAL ULTRASOUND EXAM DATE: 01/22/2020 03:46 PM. CLINICAL HISTORY: NELSY - 2 VESSEL CORD. COMPARISON: OB LIMITED 01/08/2020 5:55 PM OB BIOPHYSICAL PROFILE 01/14/2020 2:02 PM OB F/U OR REPEAT 01/14/2020 11:32 AM. TECHNIQUE: Real-time sonographic evaluation of the fetus performed by the production team member. Multiple sales representative girls' apparel static images were saved for review. DATING: Established EGA 36 weeks 4 days with DANN 02/15/2020. GENERAL EVALUATION [place] . Cardiac activity: 141 bpm. Presentation: Cephalic. Placenta: Anterior position. Amniotic fluid: NELSY 23.5 cm. MVP 10.4 cm. IMPRESSION: 1. [place] live intrauterine with gestational age 36 weeks 4 days based on established DANN. 2. NELSY 23.5 cm. RADIA
== END 2020-01-22 15:13 | disposition home or self-care (01) ==
LOC: DI 15:12
PROVIDERS: ATTEND Obstetrics & Gynecology
DX: O36.8930 Maternal care for other specified fetal problems, third trimester, not applicable or unspecified (principal); Z3A.36 36 weeks gestation of pregnancy
CPT/HCPCS: 76815

== ENCOUNTER 2020-01-25 10:16 | Outpatient (CLI) | payer OTHER ==
[2020-01-25 11:06] VITALS: BP 103/60
--- NOTE | 2020-01-29 11:33 | PROCEDURE REPORT ---
- HPI Diagnosis/Indication for NST: Other (2VC) Current EDU 02/15/20 Gestation 37 Weeks and 0 Days 3 Para 2 Vital Signs Temperature 98.8 F 01/25/20 10:07 Heart Rate 113 H 01/25/20 10:07 Respiratory Rate 18 01/25/20 10:07 Blood Pressure 103/60 01/25/20 10:07 O2 Saturation 99 01/25/20 10:07 Temperature 98.8 F 01/25/20 10:07 Heart Rate 113 H 01/25/20 10:07 Respiratory Rate 18 01/25/20 10:07 Blood Pressure 103/60 01/25/20 10:07 O2 Saturation 99 01/25/20 10:07 - NST Procedure NST Procedure Start Date 01/25/20 Start Time 10:04 Stop Time 10:50 Vibroacoustic Stimulation Used No Patient States Movement Yes EFM 135 mod quinn 15x15 accels no decels TOCO: Quiet - Results and Plan Findings/Impression: 34 yo at 37+0 wga with 2VC here for NST Plan: Cat I tracing Cont with twice weekly NST and weekly NELSY
== END 2020-01-25 10:55 | disposition home or self-care (01) ==
LOC: WFO 10:16 → FBP 10:23 → WFO 10:55
PROVIDERS: ATTEND Obstetrics & Gynecology
DX: O36.8930 Maternal care for other specified fetal problems, third trimester, not applicable or unspecified (principal)
CPT/HCPCS: 59025

== ENCOUNTER 2020-01-29 11:29 | Outpatient (CLI) | payer OTHER ==
--- NOTE | 2020-01-30 03:41 | Ultrasound Report ---
Reason: WEEKLY NELSY Procedure Date: 01/29/2020 Accession Number: [id number] / [id number] Procedure: US - OB Limited CPT Code: Final Report FULL RESULT: EXAM: FOLLOW-UP OBSTETRICAL ULTRASOUND EXAM DATE: 01/29/2020 12:03 PM. CLINICAL HISTORY: WEEKLY NELSY. COMPARISON: OB LIMITED 01/22/2020 3:17 PM. TECHNIQUE: Real-time sonographic evaluation of the fetus performed by the magnetic resonance imaging director. Multiple assisted sales representative static images were saved for review. DATING: Established EGA 37 weeks 4 days with DANN 02/15/2020 based on provided dating. GENERAL EVALUATION [place] . Cardiac activity: 126 bpm. movement: Visualized. Presentation: Cephalic. Placenta: Anterior position. Amniotic fluid: Normal. NELSY 28.1 cm. MVP 10.4 cm. IMPRESSION: 1. [place] live intrauterine with gestational age 37 weeks 4 days based on provided dating. 2. NELSY of 28.1. RADIA
== END 2020-01-29 11:30 | disposition home or self-care (01) ==
LOC: DI 11:29
PROVIDERS: ATTEND Obstetrics & Gynecology
DX: O36.8930 Maternal care for other specified fetal problems, third trimester, not applicable or unspecified (principal); Z3A.37 37 weeks gestation of pregnancy
CPT/HCPCS: 76815

== ENCOUNTER 2020-01-29 11:58 | Outpatient (CLI) | payer OTHER ==
[2020-01-29 12:15] VITALS: BP 106/63
--- NOTE | 2020-01-30 14:22 | PROCEDURE REPORT ---
- HPI Diagnosis/Indication for NST: Other (SVC, borderline polyhydramnios) Current EDU 02/15/20 Gestation 37 Weeks and 4 Days 3 Para 1 Vital Signs Temperature 98.6 F 01/29/20 12:06 Heart Rate 100 01/29/20 12:06 Respiratory Rate 18 01/29/20 12:06 Blood Pressure 106/63 01/29/20 12:06 O2 Saturation 100 01/29/20 12:06 Temperature 98.6 F 01/29/20 12:06 Heart Rate 100 01/29/20 12:06 Respiratory Rate 18 01/29/20 12:06 Blood Pressure 106/63 01/29/20 12:06 O2 Saturation 100 01/29/20 12:06 - NST Procedure NST Procedure Start Date 01/29/20 Start Time 12:05 Stop Time 12:58 Vibroacoustic Stimulation Used No Patient States Movement Yes EFM 135 mod quinn 15x15 accels no decels TOCO: Quiet - Results and Plan Findings/Impression: 34 yo at 37w4d with 2VC here for NST Cat I tracing Cont with twice weekly NST and weekly NELSY
== END 2020-01-29 13:05 | disposition home or self-care (01) ==
LOC: WFO 11:58 → FBP 12:01 → WFO 13:05
PROVIDERS: ATTEND Obstetrics & Gynecology
DX: O36.8930 Maternal care for other specified fetal problems, third trimester, not applicable or unspecified (principal); O40.3XX0 Polyhydramnios, third trimester, not applicable or unspecified; Z3A.37 37 weeks gestation of pregnancy
CPT/HCPCS: 59025; 76815

== ENCOUNTER 2020-02-01 10:02 | Outpatient (CLI) | payer OTHER ==
[2020-02-01 10:15] VITALS: BP 125/68
--- NOTE | 2020-02-04 10:47 | PROCEDURE REPORT ---
- HPI Diagnosis/Indication for NST: Other (single umbilical artery) Current EDU 02/15/20 Gestation 38 Weeks and 0 Days 3 Para 1 Vital Signs Temperature 36.9 C 02/01/20 10:08 Heart Rate 103 H 02/01/20 10:08 Respiratory Rate 18 02/01/20 10:08 Blood Pressure 125/68 02/01/20 10:08 O2 Saturation 99 02/01/20 10:08 Temperature 36.9 C 02/01/20 10:08 Heart Rate 103 H 02/01/20 10:08 Respiratory Rate 18 02/01/20 10:08 Blood Pressure 125/68 02/01/20 10:08 O2 Saturation 99 02/01/20 10:08 - NST Procedure NST Procedure Start Date 02/01/20 Start Time 10:06 Stop Time 10:27 Vibroacoustic Stimulation Used No Patient States Movement Yes - Results and Plan Findings/Impression: reactive NST silgle umbilical artery Plan: continue NST until delivery
== END 2020-02-01 10:30 | disposition home or self-care (01) ==
LOC: WFO 10:02 → FBP 10:03 → WFO 10:30
PROVIDERS: ATTEND Obstetrics & Gynecology
DX: O36.8930 Maternal care for other specified fetal problems, third trimester, not applicable or unspecified (principal); Z3A.38 38 weeks gestation of pregnancy
CPT/HCPCS: 59025

== ENCOUNTER 2020-02-05 11:30 | Outpatient (CLI) | payer OTHER ==
--- NOTE | 2020-02-06 01:45 | Ultrasound Report ---
Reason: SINGLE UMBILICAL ARTERY, SUPERVISION OF Procedure Date: 02/05/2020 Accession Number: [id number] / [id number] Procedure: US - OB Limited CPT Code: Final Report FULL RESULT: EXAM: LIMITED OBSTETRICAL ULTRASOUND EXAM DATE: 02/05/2020 11:51 AM. CLINICAL HISTORY: SINGLE UMBILICAL ARTERY, SUPERVISION OF . COMPARISON: OB LIMITED 01/29/2020 11:41 AM. TECHNIQUE: Real-time sonographic evaluation of the fetus performed by the picker feeder. Multiple product support representative static images were saved for review. DATING: Established EGA 38 weeks 4 days with DANN 02/15/2020. GENERAL EVALUATION [place] . Cardiac activity: 153 bpm. movement: Visualized. Presentation: Cephalic. Placenta: Anterior position. Amniotic fluid: Normal. NELSY 21.1 cm. MVP 6.1 cm. IMPRESSION: 1. [place] live intrauterine with gestational age 38 weeks 4 days based on established DANN. 2. Normal NELSY. RADIA
== END 2020-02-05 11:31 | disposition home or self-care (01) ==
LOC: DI 11:30
PROVIDERS: ATTEND Obstetrics & Gynecology
DX: O36.8930 Maternal care for other specified fetal problems, third trimester, not applicable or unspecified (principal); Z3A.38 38 weeks gestation of pregnancy
CPT/HCPCS: 76815

== ENCOUNTER 2020-02-05 11:54 | Outpatient (CLI) | payer OTHER ==
[2020-02-05 12:12] VITALS: BP 106/58
--- NOTE | 2020-02-06 11:56 | PROCEDURE REPORT ---
- HPI Diagnosis/Indication for NST: Other (2VC/polyhydramnios) Current EDU 02/15/20 Gestation 38 Weeks and 4 Days 3 Para 1 Vital Signs Temperature 97.7 F 02/05/20 12:03 Heart Rate 98 02/05/20 12:03 Respiratory Rate 16 02/05/20 12:03 Blood Pressure 106/58 L 02/05/20 12:03 O2 Saturation 98 02/05/20 12:03 Temperature 97.7 F 02/05/20 12:03 Heart Rate 98 02/05/20 12:03 Respiratory Rate 16 02/05/20 12:03 Blood Pressure 106/58 L 02/05/20 12:03 O2 Saturation 98 02/05/20 12:03 - NST Procedure NST Procedure Start Date 02/05/20 Start Time 12:08 Stop Time 12:40 Patient States Movement Yes EFM 125 mod quinn 15x15 accels no decels TOCO: intermittent - Results and Plan Findings/Impression: Impression: Cat I tracing 34 yo at 38w4d with complicated by 2VC and polyhydramanios Polyhydramnios reviewed with MFM; no change in place Cont with twice weekly NST and IOL at 39 wga
== END 2020-02-05 12:50 | disposition home or self-care (01) ==
LOC: WFO 11:54 → FBP 11:56 → WFO 12:50
PROVIDERS: ATTEND Obstetrics & Gynecology
DX: O36.8930 Maternal care for other specified fetal problems, third trimester, not applicable or unspecified (principal); O40.3XX0 Polyhydramnios, third trimester, not applicable or unspecified; Z3A.38 38 weeks gestation of pregnancy
CPT/HCPCS: 59025; 76815

== ENCOUNTER 2020-02-08 07:45 | Inpatient (IN) | payer OTHER ==
[2020-02-08] MEDS ORDERED: SODIUM CHLORIDE FLUSH 0.9% 10 ML SYRINGE IVP PRN (08:54)
[2020-02-08] MEDS ORDERED: fentaNYL 100 MCG/2 ML VIAL IVP PRN (08:54)
[2020-02-08] MEDS ORDERED: LACTATED RINGERS 1,000 ML IV SCH ×2 (09:00→21:00)
[2020-02-08] MEDS: miSOPROStoL 100 MCG TABLET PO SCH ×3 (09:28→19:09)
[2020-02-08] MEDS: SODIUM CHLORIDE FLUSH 0.9% 10 ML SYRINGE IVP SCH ×2 (09:40→19:09)
[2020-02-08 09:49] LABS: BASOPHILS # (AUTO) 0.1 10^3/uL (0.0-0.1); BASOPHILS % (AUTO) 0.6 %; EOSINOPHILS # (AUTO) 0.1 10^3/uL (0.0-0.7); EOSINOPHILS % (AUTO) 0.8 %; HGB - HEMOGLOBIN 12.7 g/dL (12.0-16.0); LYMPHOCYTES # (AUTO) 1.3 10^3/uL (1.5-3.5); LYMPHOCYTES % (AUTO) 12.2 %; MEAN CORPUSCULAR HEMOGLOBIN 31.5 pg (27.0-31.0); MEAN CORPUSCULAR VOLUME 92.6 fL (81.0-99.0); MEAN PLATELET VOLUME 9.5 fL (7.9-10.8); MONOCYTES # (AUTO) 0.7 10^3/uL (0.0-1.0); MONOCYTES % (AUTO) 6.3 %; NEUTROPHILS # (AUTO) 8.2 10^3/uL (1.5-6.6); NEUTROPHILS % (AUTO) 77.5 %; PLT - PLATELET COUNT 309 10^3/uL (130-450); RED BLOOD COUNT 4.03 10^6/uL (4.20-5.40); RED CELL DISTRIBUTION WIDTH 13.5 % (12.0-15.0); WHITE BLOOD COUNT 10.6 x10^3/uL (4.8-10.8)
--- NOTE | 2020-02-08 09:58 | HISTORY & PHYSICAL EXAMINATION ---
Admit History - Visit Reason Visit Reason: Other (34yo GBS neg O+ at 39 weeks by first trimester scan not c/w LMP presents for scheduled IOL. Feeling well. Few mild contractions. No fluid leak or bleeding, normal activity. No n/v/f/c or dysuria.) - : 3 Parity: 2 Premature: 0 Ectopic: 0 : 0 Care: positive: [facility] Risk/History: positive: Other (H/O PPH and precipitous deliveries) Complications This : positive: Other (2 vessel cord) Smoking Status: Never smoker - Mother's Labs Mother's Blood Type: positive: O Mother's RH: positive: Positive GBS: positive: Group B Step Negative Rubella Status: positive: Immune (RPR/HIV/Hep B/C neg GC/chlam neg Varicella immune Glucola 125) Meds/Allgy - Home Medications Home Medications: Ambulatory Orders Medication Instructions Recorded Confirmed No122/Iron/Folic Acid 1 PO DAILY 06/29/17 [ Multi Tablet] - Allergies Allergies/Adverse Reactions: Allergies Allergy/AdvReac Type Severity Reaction Status Date / Time No Known Drug Allergies Allergy Verified 06/29/17 15:01 Review of Systems - Eyes Eyes: denies: Blurred vision - Cardiovascular Cariovascular: denies: Palpitations - Respiratory Respiratory: denies: Cough - Neurological Neurological: denies: Headache, Dizziness - All Other Systems All Other Systems: reports: Other (As noted above) Physical - Abdominal Exam Vital Signs: 119/81, 106/67 36.7/18/97 reg Contraction Frequency (min/apart): None Uterine Resting Tone: positive: Soft - Monitoring Strip Review: positive: Category I - Presentation Presentation: positive: Vertex (By scan) - Vaginal Exam Membranes: positive: Membranes intact Dilation (in cm): 3 Effacement (%): 0 Station: positive: Ballotable Cervical Position: positive: Posterior - Speculum Exam Speculum Exam Performed: positive: No Plan for Labor - Plan For Labor Plan for Labor: 34yo at 39 weeks GBS neg O+ admitted for IOL. complicated by 2 vessel cord; screening otherwise neg. H/O PPH w first delivery. Plan miso; transition to pitocin and/or AROM when indicated. EFW 3800gm CBC, T&S PRN epidural Reg diet. Continuous EFM Expect Exam - Exam General: Alert, Oriented x3, Cooperative Lungs: Clear to auscultation Cardiovascular: Regular rate (2/6 systolic murmur along LSB) Abdomen: No tenderness, No masses (Gravid, S=D) Extremities: Other (Tr bipedal edema) Neurological: Normal speech, Normal tone Psych/Mental Status: Mood NL
[2020-02-08] MEDS ORDERED: OXYTOCIN/SODIUM CHLORIDE 500 ML IV ONE (10:15)
[2020-02-08] MEDS: LACTATED RINGERS 1,000 ML IV SCH ×2 (10:19→11:50)
--- NOTE | 2020-02-08 14:32 | PROVIDER PROGRESS NOTE ---
Subjective - Subjective Subjective: S/P miso #2 Feeling a little crampy, no real contractions although they are tracing q4-5 minutes. Objective - Vital Signs/Intake & Output Intake & Output: Intake & Output 02/05/20 02/06/20 02/07/20 02/08/20 23:59 23:59 23:59 23:59 Intake Total 1000 Output Total 1400 Balance -400 - Objective General Appearance: positive: No acute distress Abdomen: positive: Other (Soft. Very mild contractions. Exam deferred) - Lab Results Fish Bones: 02/08/20 09:33 Other Labs: Lab Results x24hrs 02/08/20 02/08/20 Range/Units 09:33 09:20 WBC 10.6 (4.8-10.8) x10^3/uL RBC 4.03 L (4.20-5.40) 10^6/uL Hgb 12.7 (12.0-16.0) g/dL Hct 37.3 (37.0-47.0) % MCV 92.6 (81.0-99.0) fL MCH 31.5 H (27.0-31.0) pg MCHC 34.0 (32.0-36.0) g/dL RDW 13.5 (12.0-15.0) % Plt Count 309 (130-450) 10^3/uL MPV 9.5 (7.9-10.8) fL Neut # (Auto) 8.2 H (1.5-6.6) 10^3/uL Lymph # (Auto) 1.3 L (1.5-3.5) 10^3/uL [place] # (Auto) 0.7 (0.0-1.0) 10^3/uL Eos # (Auto) 0.1 (0.0-0.7) 10^3/uL Baso # (Auto) 0.1 (0.0-0.1) 10^3/uL Absolute Nucleated RBC 0.00 x10^3/uL Nucleated RBC % 0.0 /100WBC Blood Type O POSITIVE Antibody Screen NEGATIVE Crossmatch IS Only See Detail - Other Results/Comments Other Results/Comments: Category 1 tracing Doing well. Check postprandial finger stick. Consider AROM at the time of next intervention.
[2020-02-08] MEDS ORDERED: miSOPROStoL 200 MCG TABLET ONE (17:47)
[2020-02-08] MEDS ORDERED: LIDOCAINE-MPF 1% 30 ML VIAL ONE (17:47)
--- NOTE | 2020-02-08 17:48 | PROVIDER PROGRESS NOTE ---
Subjective - Prog Note Date Prog Note Date: 02/08/20 Prog Note Time: 17:46 - Subjective Subjective: Starting to feel the contractions a little. Mild increase in pressure. Objective - Vital Signs/Intake & Output Vital Signs: VSS afebrile Intake & Output: Intake & Output 02/05/20 02/06/20 02/07/20 02/08/20 23:59 23:59 23:59 23:59 Intake Total 1000 Output Total 2000 Balance -1000 - Lab Results Fish Bones: 02/08/20 09:33 Other Labs: Lab Results x24hrs 02/08/20 02/08/20 02/08/20 Range/Units 14:40 09:33 09:20 WBC 10.6 (4.8-10.8) x10^3/uL RBC 4.03 L (4.20-5.40) 10^6/uL Hgb 12.7 (12.0-16.0) g/dL Hct 37.3 (37.0-47.0) % MCV 92.6 (81.0-99.0) fL MCH 31.5 H (27.0-31.0) pg MCHC 34.0 (32.0-36.0) g/dL RDW 13.5 (12.0-15.0) % Plt Count 309 (130-450) 10^3/uL MPV 9.5 (7.9-10.8) fL Neut # (Auto) 8.2 H (1.5-6.6) 10^3/uL Lymph # (Auto) 1.3 L (1.5-3.5) 10^3/uL [place] # (Auto) 0.7 (0.0-1.0) 10^3/uL Eos # (Auto) 0.1 (0.0-0.7) 10^3/uL Baso # (Auto) 0.1 (0.0-0.1) 10^3/uL Absolute Nucleated RBC 0.00 x10^3/uL Nucleated RBC % 0.0 /100WBC POC Whole Bld Glucose 79 (70 - 100) mg/dL Blood Type O POSITIVE Antibody Screen NEGATIVE Crossmatch IS Only See Detail - Other Results/Comments Other Results/Comments: S/P miso x2, sourav q2-4. VE 5cm/50%/-2, well applied with contraction. AROM clear A/P Doing well. Expectant management for now. Will start pitocin if not adequately laboring within the next hour.
--- NOTE | 2020-02-08 19:08 | PROVIDER PROGRESS NOTE ---
Subjective - Prog Note Date Prog Note Date: 02/08/20 Prog Note Time: 19:07 - Subjective Subjective: Contractions a bit stronger since AROM, however still fairly comfortable. No pressure. Objective - Vital Signs/Intake & Output Intake & Output: Intake & Output 02/05/20 02/06/20 02/07/20 02/08/20 23:59 23:59 23:59 23:59 Intake Total 1000 Output Total 2000 Balance -1000 - Lab Results Fish Bones: 02/08/20 09:33 Other Labs: Lab Results x24hrs 02/08/20 02/08/20 02/08/20 Range/Units 14:40 09:33 09:20 WBC 10.6 (4.8-10.8) x10^3/uL RBC 4.03 L (4.20-5.40) 10^6/uL Hgb 12.7 (12.0-16.0) g/dL Hct 37.3 (37.0-47.0) % MCV 92.6 (81.0-99.0) fL MCH 31.5 H (27.0-31.0) pg MCHC 34.0 (32.0-36.0) g/dL RDW 13.5 (12.0-15.0) % Plt Count 309 (130-450) 10^3/uL MPV 9.5 (7.9-10.8) fL Neut # (Auto) 8.2 H (1.5-6.6) 10^3/uL Lymph # (Auto) 1.3 L (1.5-3.5) 10^3/uL [place] # (Auto) 0.7 (0.0-1.0) 10^3/uL Eos # (Auto) 0.1 (0.0-0.7) 10^3/uL Baso # (Auto) 0.1 (0.0-0.1) 10^3/uL Absolute Nucleated RBC 0.00 x10^3/uL Nucleated RBC % 0.0 /100WBC POC Whole Bld Glucose 79 (70 - 100) mg/dL Blood Type O POSITIVE Antibody Screen NEGATIVE Crossmatch IS Only See Detail - Other Results/Comments Other Results/Comments: VSS afeb Category 1 tracing. Ctx q3-4 Exam deferred A/P Will start pitocin. Expect
[2020-02-08] MEDS ORDERED: OXYTOCIN/SODIUM CHLORIDE 500 ML IV SCH (20:00)
[2020-02-08] MEDS: METHYLERGONOVINE 0.2 MG/ML VIAL IM SCH (20:39)
[2020-02-08] MEDS ORDERED: METHYLERGONOVINE 0.2 MG/ML VIAL ONE (20:41)
[2020-02-08] MEDS ORDERED: DOCUSATE SODIUM 100 MG CAPSULE PO PRN (20:51)
[2020-02-08] MEDS ORDERED: OXYTOCIN/SODIUM CHLORIDE 500 ML IV PRN ×2 (20:51→20:53)
[2020-02-08] MEDS ORDERED: WITCH HAZEL/GLYCERIN 1 PAD TOP PRN (20:51)
[2020-02-08] MEDS ORDERED: ONDANSETRON ODT 4 MG TABLET TL PRN (20:51)
[2020-02-08] MEDS ORDERED: HYDROCORTISONE 1% CREAM 28 GM TUBE PR PRN (20:51)
--- NOTE | 2020-02-08 21:01 | DELIVERY NOTE ---
Delivery Note - Labor Labor: positive: Other (Induced with misoprostol followed by oxytocin and AROM) - Delivery Method Delivery Method: positive: Spontaneous vaginal delivery - Cervical Ripening Method Cervical Ripening Method: positive: Misoprostil - Presentation Presentation: positive: Vertex, ELVIRA - left occiput anterior - Nuchal Cord Nuchal Cord: positive: Present, Reduced (x1) - Anesthetic Anesthetic Type: Anesthetic: positive: Lidocaine - 1% plain Volume: positive: Other (15cc) - Amniotic Fluid Description Amniotic Fluid Description: positive: Clear - Episiotomy Type Episiotomy Type: positive: None - Laceration Laceration: positive: 2nd degree - Suture Suture Type: positive: Vicryl Suture Size: positive: 3-0 (3cm left Bartholin abscess drained, cyst wall partially removed and closed. Upper vagina, cervix, rectum intact) - Delivery Outcome Delivery Outcome: positive: Livebirth - [place]: positive: Placed in direct skin contact with mother, Suctioned, Bulb syringe [place] sex: positive: Female - Cord Cord: positive: 2 vessels - Placenta Placenta: positive: Intact, Spontaneous (Velamentous marginal insertion) - Estimated Blood Loss Estimated Blood Loss (in cc): 500 - Post Delivery Events Post Delivery Events: positive: Hemorrhage (Lower segment atony. Oxytocin, misoprostol, methergine given.) - Delivery Comments (Free Text/Narrative) Delivery Comments (Free Text/Narrative): of 4278gm female apgars 8/9 delivered at 20:19 from ELVIRA. Loose nuchal cord x1 reduced. Vigorous cry. Pitocin started and miso given after delivery of shoulders. Placenta spontaneous with traction, intact with marginal velamentous insertion of 2 vessel cord. Upper vagina, cervix, rectum intact. Small second degree laceration repaired with 3-0 vicryl rapide. 3cm left Bartholin abscess opened, drained, partial removal of cyst wall, closed with repair. Lower segment atony, methergine given, clot evacuated. EBL 500cc I was present throughout.
[2020-02-08] MEDS: ACETAMINOPHEN 325 MG TABLET PO PRN (21:02)
[2020-02-08] MEDS ORDERED: miSOPROStoL 200 MCG TABLET PR ONE (21:33)
[2020-02-08] MEDS ORDERED: miSOPROStoL 100 MCG TABLET PO SCH (22:00)
[2020-02-09] MEDS: METHYLERGONOVINE 0.2 MG/ML VIAL IM SCH ×3 (01:16→09:20)
[2020-02-09] MEDS: IBUPROFEN 600 MG TABLET PO PRN ×3 (05:04→17:05)
[2020-02-09] MEDS ORDERED: IRON DEXTRAN 1,000 MG in SODIUM CHLORIDE 0.9% 250 ML IV ONE (09:00)
--- NOTE | 2020-02-09 10:20 | PROVIDER PROGRESS NOTE ---
Subjective - Prog Note Date Prog Note Date: 02/09/20 Prog Note Time: 10:06 - Subjective Subjective: Very comfortable. Ambulating, voiding, link reg diet. Minimal lochia s/p methergine x3 and peripartum meds. going well. Objective - Vital Signs/Intake & Output Reviewed Vital Signs: Yes Vital Signs: Vital Signs x48h Temp Pulse Resp BP Pulse Ox 02/09/20 09:44 98.1 F 02/09/20 08:00 72 17 100/63 100 02/09/20 05:10 98.3 F 74 15 107/67 100 Intake & Output: Intake & Output 02/06/20 02/07/20 02/08/20 02/09/20 23:59 23:59 23:59 23:59 Intake Total 2450 500 Output Total 2300 450 Balance 150 50 - Objective General Appearance: positive: No acute distress, Alert Abdomen: positive: Non-tender (Fundus firm, below umbilicus) Extremities: positive: Pedal edema (Bilateral 2+ since admission) - Lab Results Fish Bones: 02/09/20 05:39 Other Labs: Lab Results x24hrs 02/09/20 02/08/20 02/08/20 Range/Units 05:39 14:40 09:20 Hgb 12.7 (12.0-16.0) g/dL POC Whole Bld Glucose 79 (70 - 100) mg/dL Blood Type O POSITIVE Antibody Screen NEGATIVE Crossmatch IS Only See Detail - Other Results/Comments Other Results/Comments: PPD 1 (late delivery) Stable. Baby continues under obs Continue routine care. Expect DC home tomorrow.
[2020-02-09] MEDS: ACETAMINOPHEN 325 MG TABLET PO PRN ×2 (11:04→17:05)
[2020-02-10] MEDS: ACETAMINOPHEN 325 MG TABLET PO PRN (00:03)
[2020-02-10 07:57] VITALS: BP 92/55
--- NOTE | 2020-02-10 09:52 | PROVIDER PROGRESS NOTE ---
Subjective - Prog Note Date Prog Note Date: 02/10/20 Prog Note Time: 09:50 - Subjective Subjective: PPD 1 Feeling well. Ambulating, voiding, link reg diet. Scant lochia. going well. Planning Mirena in 6 weeks. VSS afeb Abd soft, non-tender, fundus firm below umbilicus. A/P Stable. Plan DC home today. F/u in 2 weeks. Objective - Vital Signs/Intake & Output Vital Signs: Vital Signs x48h Temp Pulse Resp BP Pulse Ox 02/10/20 07:57 97.9 F 65 18 92/55 L 96 Intake & Output: Intake & Output 02/07/20 02/08/20 02/09/20 02/10/20 23:59 23:59 23:59 23:59 Intake Total 2451 770 Output Total 2300 450 Balance 151 320 - Lab Results Fish Bones: 02/09/20 05:39
--- NOTE | 2020-02-10 09:55 | DISCHARGE SUMMARY ---
"Discharge Summary Admit Date: 02/08/20 Discharge Date: 02/10/20 Discharging Provider: Nell Hernandez MD Code Status: Attempt Resuscitation Condition at Discharge: Good Discharge Disposition: 01 Home, Self Care - DIAGNOSES Admission Diagnoses: at 39 weeks Discharge Diagnoses with Status of Each Condition: S/P - HPI History of Present Illness: 34yo now 3 GBS neg O+ at 39 weeks by first trimester scan not c/w LMP presented for scheduled IOL. Feeling well. Few mild contractions. No fluid leak or bleeding, normal activity. No n/v/f/c or dysuria. - CONSULTS | PROCEDURES Procedures: , repair second degree laceration - HOSPITAL COURSE Hospital Course: Inductin was initiated using misoprostol for cervical ripening. Two doses were given. Her membranes were then ruptured and pitocin was started. She progressed to full dilation and was delivered of a 4278gm female infant apgars 8/9 on 02/07. Because of a h/o PPH she was given 1000mcg misoprostol and pitocin which were immediately started after delivery of the baby. Despite this, following delivery of the placenta, atony of the lower segment was noted and methergine was added and continued for 3 doses. Total EBL was 500cc. A small second degree laceration was repaired. She was otherwise intact. On PPD 1 IV iron dextran was given. She remained stable and her course was unremarkable. She is planning Mirena in 6 weeks. She was DC'd home on PPD 2. - ALLERGIES Allergies/Adverse Reactions: Allergies Allergy/AdvReac Type Severity Reaction Status Date / Time No Known Drug Allergies Allergy Verified 06/29/17 15:01 - MEDICATIONS Home Medications: Ambulatory Orders Medication Instructions Recorded Confirmed No122/Iron/Folic Acid 1 PO DAILY 06/29/17 [ Multi Tablet] Home Medications Other | Comments: Tylenol, ibuprofen PRN - PHYSICAL EXAM AT DISCHARGE General Appearance: positive: No acute distress, Alert Respiratory: positive: No respiratory distress Abdomen: positive: Non-tender, No distention (Fundus firm below umbilicus) Extremities: positive: Pedal edema (1+ bilaterally) Neurologic/Psychiatric: positive: Oriented x3, Mood/affect nml - LABS Result Diagrams: 02/09/20 05:39"
--- NOTE | 2020-02-10 10:05 | Discharge Plan ---
Discharge Plan Problem Reviewed?: Yes Disposition: Home, Self Care Condition: Good Diet: Regular Activity Restrictions: Pelvic rest Shower Restrictions: No Driving Restrictions: No Weight Bearing: Full Weight No Smoking: If you smoke, Please STOP! Call for help.
--- NOTE | 2020-02-10 11:57 | Labor Flowsheet ---
Labor Flowsheet Datetime Report Generated by CPN: 02/10/2020 11:57 Datetime: 02/10/2020 07:37 VITAL SIGNS NBP Sys/Marzena/Mean (mmHg): 92 : 55 : 63 Pulse: 64 LaborFlag: Labor Datetime: 02/10/2020 00:04 SpO2 (%): 96 Datetime: 02/08/2020 20:19 UTERINE ACTIVITY Monitor Mode: External Frequency (min): 1.5-3 Quality: Moderate Duration (sec): 60-80 Pattern: Normal: <= 5 Contractions in 10 Minutes Resting Tone (Palpate): Relaxed ASSESSMENT A Monitor Mode: Telemetry FHR Baseline Rate : 145 Variability: Moderate 6-25 bpm Accelerations: None Decelerations: Early; Variable Actions for Decelerations: Hands and Knees Category: Category II Comments: intermit tracing d/t maternal position Datetime: 02/08/2020 20:14 Monitor Interventions for FHR: Ultrasound Adjusted COMMUNICATION Communication: RN at Bedside Datetime: 02/08/2020 20:13 STAGE 2 Pushing: Coached on Pushing; Urge to Push; Involuntary Pushing Pushing Position: Pushing with Contractions Pushing Progress: Descent with Pushing Stage 2 Comments: Hands and knees, kneeling in bed with HOB raised Datetime: 02/08/2020 20:12 VAGINAL EXAM Dilatation (cm): 10.0 Effacement (%): 100 Station: 2 Exam by: Dr. Erber Datetime: 02/08/2020 20:07 Patient Care Comments: Hands and knees Datetime: 02/08/2020 19:50 Vibroacoustic Stim: Datetime: 02/08/2020 19:45 PAIN Pain Scale: 8 Pain Presence: Intermittent Pain Type: Contraction Datetime: 02/08/2020 19:34 Provider Notified (Name): Dr. Erber Communication Comments: @ bedside to assess pt Datetime: 02/08/2020 19:30 MATERNAL ASSESSMENT Level of Consciousness: Alert DTR's/Clonus: DTRs 2+; No Clonus Headache: Denies Breath Sounds, Left: Clear and Equal Breath Sounds, Right: Clear and Equal Nausea/Vomiting: Denies RUQ Epigastric Pain: Denies Datetime: 02/08/2020 19:06 Temperature (C): 36.7 Pain Coping: Talking Through Contractions Pain Assessment Comments: Tightness Comfort Measures: Breathing/Relaxation; Family Support Datetime: 02/08/2020 19:03 MEDICATIONS Pitocin (milliunits): Started @ 1 Datetime: 02/08/2020 18:57 Stage of : Labor Datetime: 02/08/2020 18:31 Hygiene: Underpad Changed Datetime: 02/08/2020 17:51 Amniotic Fluid Amount: Large Datetime: 02/08/2020 17:50 Respirations: 20 Datetime: 02/08/2020 17:33 Membrane Status: Ruptured Membranes Rupture Method: Artificial Amniotic Fluid Color: Clear Datetime: 02/08/2020 16:50 I/O Interventions: Up to BR Datetime: 02/08/2020 13:41 Monitor Interventions for UA: [place] Adjusted Datetime: 02/08/2020 13:37 PATIENT CARE Patient Position/Activity: Right Lateral Datetime: 02/08/2020 13:27 Cervical Ripening Agents: Cytotec @ Datetime: 02/08/2020 13:17 Provider Reviewed Strip: Yes Datetime: 02/08/2020 11:00 FHR Baseline Changes: No Baseline Change
== END 2020-02-10 11:23 | disposition home or self-care (01) | DRG 768 ==
LOC: WFO 07:45 → FBP 07:50 → WFO 08:53 → FBP 08:54
PROVIDERS: ADMIT Obstetrics & Gynecology; ATTEND Obstetrics & Gynecology
PROC: 10E0XZZ Delivery of Products of Conception, External Approach (ICD-10-PCS; principal; 2020-02-08)
PROC: 0UBLXZZ Excision of Vestibular Gland, External Approach (ICD-10-PCS; 2020-02-08)
PROC: 0KQM0ZZ Repair Perineum Muscle, Open Approach (ICD-10-PCS; 2020-02-08)
PROC: 10907ZC Drainage of Amniotic Fluid, Therapeutic from Products of Conception, Via Natural or Artificial Opening (ICD-10-PCS; 2020-02-08)
DX: O69.89X0 Labor and delivery complicated by other cord complications, not applicable or unspecified (principal); Z37.0 Single live birth; O75.3 Other infection during labor; O72.1 Other immediate postpartum hemorrhage; O43.123 Velamentous insertion of umbilical cord, third trimester; O70.1 Second degree perineal laceration during delivery; O69.81X0 Labor and delivery complicated by cord around neck, without compression, not applicable or unspecified; Z3A.39 39 weeks gestation of pregnancy; Z87.59 Personal history of other complications of pregnancy, childbirth and the puerperium
CPT/HCPCS: 36415; 85018; 85025; 86850; 86900; 86901; 86920; A9270; J1750; J2210; J7120

== ENCOUNTER 2022-04-05 13:39 | Outpatient (CLI) | payer OTHER ==
[2022-04-05 14:13] LABS: BASOPHILS # (AUTO) 0.1 10^3/uL (0.0-0.1); BASOPHILS % (AUTO) 0.9 %; EOSINOPHILS # (AUTO) 0.2 10^3/uL (0.0-0.7); EOSINOPHILS % (AUTO) 1.7 %; HCT - HEMATOCRIT 42.3 % (37.0-47.0); HGB - HEMOGLOBIN 14.1 g/dL (12.0-16.0); LYMPHOCYTES # (AUTO) 2.2 10^3/uL (1.5-3.5); LYMPHOCYTES % (AUTO) 25.3 %; MEAN CORPUSCULAR HEMOGLOBIN 31.2 pg (27.0-31.0); MEAN CORPUSCULAR HGB CONC 33.3 g/dL (32.0-36.0); MEAN CORPUSCULAR VOLUME 93.6 fL (81.0-99.0); MONOCYTES # (AUTO) 0.6 10^3/uL (0.0-1.0); MONOCYTES % (AUTO) 6.9 %; NEUTROPHILS # (AUTO) 5.7 10^3/uL (1.5-6.6); PLT - PLATELET COUNT 347 10^3/uL (130-450); RED BLOOD COUNT 4.52 10^6/uL (4.20-5.40); RED CELL DISTRIBUTION WIDTH 12.7 % (12.0-15.0); WHITE BLOOD COUNT 8.7 x10^3/uL (4.8-10.8)
[2022-04-05 14:43] LABS: ALBUMIN 4.6 g/dL (3.2-5.5); ALBUMIN/GLOBULIN RATIO 1.4 (1.0-2.2); ALKALINE PHOSPHATASE 45 IU/L (42-121); ALT ALANINE AMINOTRANSFERASE 15 IU/L (10-60); AST ASPARTATE AMINOTRANSFERASE 17 IU/L (10-42); BILIRUBIN,TOTAL 0.4 mg/dL (0.2-1.0); BUN - BLOOD UREA NITROGEN 16 mg/dL (6-20); CALCIUM 9.2 mg/dL (8.5-10.3); CARBON DIOXIDE - CO2 27 mmol/L (21-32); CHLORIDE 102 mmol/L (101-111); CHOL/HDL RATIO 3.6 (<4.4); CHOLESTEROL 266 mg/dL; CREATININE 0.7 mg/dL (0.4-1.0); GFR - MDRD 95 (>89); GLUCOSE 92 mg/dL (70-100); HDL CHOLESTEROL 73 mg/dL; LDL CHOLESTEROL,CALCULATED 180 mg/dL; LDL/HDL RATIO 2.5 (<4.4); POTASSIUM 3.9 mmol/L (3.5-5.0); SODIUM 139 mmol/L (135-145); TRIGLYCERIDES 66 mg/dL; VLDL CHOLESTEROL 13 mg/dL
[2022-04-05 14:44] LABS: THYROID STIMULATING HORMONE 0.87 uIU/mL (0.34-5.60)
--- NOTE | 2022-04-05 17:41 | XRAY Report ---
PROCEDURE: Hips 2V BILAT INDICATIONS: BILAT HIP PAIN TECHNIQUE: 2 views of the right hip and left hip were acquired. COMPARISON: None FINDINGS: Bones: No fractures or dislocations. No suspicious bony lesions. The visualized pelvic ring appear s intact. Mild osseous hypertrophy noted in the hips bilaterally compatible with mild osteoarthritis. Mild osteophytic degenerative changes noted in the inferior margins of the SI joints. Soft tissues: No suspicious soft tissue calcifications or masses. IMPRESSION: Mild bilateral hip osteoarthritis. Reviewed by: Fabiola Mix MD, PhD on 04/05/2022 5:40 PM PDT Approved by: Fabiola Mix MD, PhD on 04/05/2022 5:40 PM PDT Station ID: [id number]
== END 2022-04-05 13:40 | disposition home or self-care (01) ==
LOC: DI 13:39
PROVIDERS: ATTEND Physician Assistant
DX: M16.0 Bilateral primary osteoarthritis of hip (principal); Z13.9 Encounter for screening, unspecified; Z13.220 Encounter for screening for lipoid disorders
CPT/HCPCS: 36415; 80053; 80061; 83721; 84443; 85025

== ENCOUNTER 2023-08-07 08:00 | Outpatient (CLI) | payer OTHER ==
[2023-08-08 16:24] LABS: BACTERIAL VAGINOSIS DNA NEGATIVE (NEGATIVE); CANDIDA GLABRATA DNA NEGATIVE (NEGATIVE); CANDIDA GROUP DNA NEGATIVE (NEGATIVE); CANDIDA KRUSEI DNA NEGATIVE (NEGATIVE); TRICHOMONAS VAGINALIS DNA NEGATIVE (NEGATIVE)
[2023-08-08 21:55] LABS: CHLAMYDIA TRACHOMATIS DNA NEGATIVE (NEGATIVE); NEISSERIA GONORRHOEAE DNA NEGATIVE (NEGATIVE)
== END 2023-08-07 08:01 | disposition home or self-care (01) ==
LOC: LAB.WC 08:00
PROVIDERS: ATTEND Nurse Practitioner
DX: N89.8 Other specified noninflammatory disorders of vagina (principal); Z11.3 Encounter for screening for infections with a predominantly sexual mode of transmission
CPT/HCPCS: 81514; 81599; 87109; 87491; 87591; 87661

== ENCOUNTER 2023-11-06 09:00 | Outpatient (CLI) | payer OTHER ==
[2023-11-06 09:11] LABS: BASOPHILS # (AUTO) 0.1 10^3/uL (0.0-0.1); BASOPHILS % (AUTO) 0.9 %; EOSINOPHILS # (AUTO) 0.2 10^3/uL (0.0-0.7); EOSINOPHILS % (AUTO) 2.3 %; HCT - HEMATOCRIT 44.3 % (37.0-47.0); HGB - HEMOGLOBIN 14.2 g/dL (12.0-16.0); LYMPHOCYTES # (AUTO) 2.1 10^3/uL (1.5-3.5); LYMPHOCYTES % (AUTO) 27.6 %; MEAN CORPUSCULAR HEMOGLOBIN 30.3 pg (27.0-31.0); MEAN CORPUSCULAR HGB CONC 32.1 g/dL (32.0-36.0); MEAN CORPUSCULAR VOLUME 94.7 fL (81.0-99.0); MEAN PLATELET VOLUME 8.7 fL (7.9-10.8); MONOCYTES # (AUTO) 0.6 10^3/uL (0.0-1.0); NEUTROPHILS # (AUTO) 4.7 10^3/uL (1.5-6.6); NEUTROPHILS % (AUTO) 60.9 %; PLT - PLATELET COUNT 352 10^3/uL (130-450); RED BLOOD COUNT 4.68 10^6/uL (4.20-5.40); WHITE BLOOD COUNT 7.7 x10^3/uL (4.8-10.8)
[2023-11-06 09:27] LABS: ALBUMIN 4.3 g/dL (3.2-5.5); ALBUMIN/GLOBULIN RATIO 1.5 (1.0-2.2); ALKALINE PHOSPHATASE 37 IU/L (42-121); ALT ALANINE AMINOTRANSFERASE 9 IU/L (10-60); AST ASPARTATE AMINOTRANSFERASE 15 IU/L (10-42); BILIRUBIN,TOTAL 0.7 mg/dL (0.2-1.0); BUN - BLOOD UREA NITROGEN 16 mg/dL (6-20); CARBON DIOXIDE - CO2 28 mmol/L (21-32); CHLORIDE 104 mmol/L (101-111); CHOL/HDL RATIO 3.7 (<4.4); CHOLESTEROL 241 mg/dL; CREATININE 0.6 mg/dL (0.6-1.3); GFR - MDRD 112 (>89); GLUCOSE 98 mg/dL (74-104); HDL CHOLESTEROL 66 mg/dL; LDL CHOLESTEROL,CALCULATED 161 mg/dL; LDL/HDL RATIO 2.4 (<4.4); POTASSIUM 4.6 mmol/L (3.5-4.5); SODIUM 139 mmol/L (135-145); TOTAL PROTEIN 7.2 g/dL (6.4-8.9); TRIGLYCERIDES 68 mg/dL (48-352); VLDL CHOLESTEROL 14 mg/dL
[2023-11-06 09:42] LABS: THYROID STIMULATING HORMONE 0.92 uIU/mL (0.34-5.60)
== END 2023-11-06 09:01 | disposition home or self-care (01) ==
LOC: LAB 09:00
PROVIDERS: ATTEND Physician Assistant
DX: E78.5 Hyperlipidemia, unspecified (principal); Z13.9 Encounter for screening, unspecified; Z13.29 Encounter for screening for other suspected endocrine disorder
CPT/HCPCS: 36415; 80053; 80061; 83721; 84443; 85025

== ENCOUNTER 2023-12-19 13:15 | Outpatient (CLI) | payer OTHER ==
[2023-12-19 14:24] LABS: ALBUMIN 4.5 g/dL (3.2-5.5); ALBUMIN/GLOBULIN RATIO 1.4 (1.0-2.2); BILIRUBIN,TOTAL 0.4 mg/dL (0.2-1.0); CALCIUM 9.5 mg/dL (8.5-10.3); CREATININE 0.7 mg/dL (0.6-1.3); POTASSIUM 4.2 mmol/L (3.5-4.5); TOTAL PROTEIN 7.7 g/dL (6.4-8.9)
== END 2023-12-19 13:16 | disposition home or self-care (01) ==
LOC: LAB 13:15
PROVIDERS: ATTEND Physician Assistant
DX: Z51.81 Encounter for therapeutic drug level monitoring (principal); Z79.899 Other long term (current) drug therapy
CPT/HCPCS: 36415; 80053

== ENCOUNTER 2024-01-17 09:44 | Outpatient (CLI) | payer OTHER ==
[2024-01-17 10:16] LABS: ALBUMIN 4.3 g/dL (3.2-5.5); ALBUMIN/GLOBULIN RATIO 1.5 (1.0-2.2); BILIRUBIN,TOTAL 0.6 mg/dL (0.2-1.0); CALCIUM 9.2 mg/dL (8.5-10.3); CREATININE 0.6 mg/dL (0.6-1.3); POTASSIUM 3.7 mmol/L (3.5-4.5); TOTAL PROTEIN 7.2 g/dL (6.4-8.9)
== END 2024-01-17 09:45 | disposition home or self-care (01) ==
LOC: LAB 09:44
PROVIDERS: ATTEND Physician Assistant
DX: Z79.899 Other long term (current) drug therapy (principal)
CPT/HCPCS: 36415; 80053